=== PATIENT | female | born 1965 | race Caucasian/White ===

== ENCOUNTER → 2016-09-12 | Outpatient (CLI) | payer OTHER ==
--- NOTE | 2016-09-12 10:56 | REPMRS ---
Patient History The patient states she had a clinical breast exam in 05/2016. No known family history of cancer. Took hormonal contraceptives for 7 years. Took unspecified hormones for 1 year. Digital Woman Screen Mammo: September 12, 2016 - Exam #: [id number] Bilateral CC and MLO view(s) were taken. Technologist: Sadie Mckenzie, Technologist Prior study comparison: August 11, 2015, digital bilateral screening mammo, performed at [facility]. June 30, 2014, bilateral bilat screen digital mammo, performed at [facility] ([facility] February 18, 2013, bilateral bilat screen digital mammo, performed at [facility] ([facility] FINDINGS: There are scattered fibroglandular densities. There has been no change in the appearance of the mammogram from the prior studies. There is a mild amount of scattered fibroglandular density which is fairly symmetric. There is no interval development of dominant mass, architectural distortion, or clustered microcalcification suggestive of malignancy. ASSESSMENT: BI-RADS/ACR category 1 mammogram. Negative. Recommendation Routine screening mammogram in 1 year (for women over age 40). This mammogram was interpreted with the aid of an FDA-approved computer-aided dectection system. Electronically Signed By: Edis Thomas MD 09/12/16 [id number]
== END ==
LOC: M WHC 09:11
PROVIDERS: ATTEND Obstetrics & Gynecology
DX: Z12.31 Encounter for screening mammogram for malignant neoplasm of breast (principal)

== ENCOUNTER → 2016-10-11 | Outpatient (REF) | payer OTHER | LOC: M LAB REF 16:45 | PROVIDERS: ATTEND Physician Assistant | DX: N39.0 Urinary tract infection, site not specified (principal); J02.9 Acute pharyngitis, unspecified ==

== ENCOUNTER → 2017-10-23 | Outpatient (CLI) | payer OTHER | LOC: M WHC 08:52 | DX: Z12.31 Encounter for screening mammogram for malignant neoplasm of breast (principal) | CPT/HCPCS: 77067 ==

== ENCOUNTER → 2018-01-30 | Outpatient (CLI) | payer OTHER | LOC: M EKG 11:56 | DX: R00.2 Palpitations (principal) ==

== ENCOUNTER 2018-02-19 06:33 | Day surgery (SDC) | payer OTHER ==
[2018-02-19] MEDS: NS 1,000 ML IV (07:07)
[2018-02-19] MEDS ORDERED: PROPOFOL 200 MG/20 ML VIAL As Ordered (07:57)
[2018-02-19] MEDS ORDERED: fentaNYL 100 MCG/2 ML INJECTION (J3010) As Ordered (07:57)
[2018-02-19] MEDS ORDERED: LIDOCAINE 2% INJ 100 MG/5 ML SDV (FOR ANES.) As Ordered (07:57)
== END 2018-02-19 08:40 | disposition home or self-care (01) ==
LOC: M OPP 06:33
DX: Z12.11 Encounter for screening for malignant neoplasm of colon (principal); D12.4 Benign neoplasm of descending colon; K64.2 Third degree hemorrhoids; K64.1 Second degree hemorrhoids; K57.30 Diverticulosis of large intestine without perforation or abscess without bleeding; K21.0 Gastro-esophageal reflux disease with esophagitis; K29.70 Gastritis, unspecified, without bleeding; K44.9 Diaphragmatic hernia without obstruction or gangrene; R00.2 Palpitations; Z97.8 Presence of other specified devices; K58.9 Irritable bowel syndrome, unspecified; F41.9 Anxiety disorder, unspecified; R51 Headache; J45.909 Unspecified asthma, uncomplicated; Z79.899 Other long term (current) drug therapy
CPT/HCPCS: 45380

== ENCOUNTER → 2019-01-07 | Outpatient (CLI) | payer OTHER ==
[~2019-01-07] MED LIST: ADV100INH INH; CETI10TA PO; FAMO40TA3 PO; MONT10TA2 PO
--- NOTE | 2019-01-07 15:40 | REP ---
BILATERAL SCREENING DIGITAL MAMMOGRAM WITHOUT 3D TOMOSYNTHESIS: There are no palpable abnormalities or other breast complaints. The the patient states she had a clinical breast examination 07/2018. The the patient states she performs self-breast examinations 12 times per year. The Tyrer Cuzick Score is :8.4%. Comparison studies are 06/30/2014 and 10/23/2017. The breasts are heterogeneously dense, which could obscure small masses. There is a new 2.1 cm nodule anteriorly in the left breast laterally as a change from the comparison studies. Impression: BIRADS/ACR category 0 mammogram., incomplete. Additional imaging evaluation is required. Recommendation: The patient has a return for spot compression diagnostic views of the left breast and left breast ultrasound. This mammogram was interpreted with the aid of a FDA approved computer-aided detection system. A. Negative mammogram reports should not delay biopsy if a dominant or clinically suspicious mass is present. B. Not all breast cancers are identified by mammography or tomosynthesis. C. Adenosis and dense breasts may obscure an underlying neoplasm. Patient letter M0 dense breasts. Electronically Signed by Suraj Mancia MD 01/07/2019 03:31 P
== END ==
LOC: M WHC 14:10
PROVIDERS: ATTEND Obstetrics & Gynecology
DX: R92.2 Inconclusive mammogram (principal)

== ENCOUNTER → 2019-01-19 | Outpatient (CLI) | payer OTHER ==
--- NOTE | 2019-01-19 17:22 | REP ---
DIAGNOSTIC MAMMOGRAM LEFT BREAST WITH LEFT BREAST ULTRASOUND: Multiple spot compression views of the left breast performed and confirm the presence of a 2 cm fairly well circumscribed nodule in the outer left breast. Real-time sonographic evaluation of outer left breast demonstrates a cyst at 2-o'clock measuring 1.8 x 1.0 x 1.7 cm. There is an adjacent 4 mm cyst as well. IMPRESSION: ACR 2 benign. Well circumscribed nodule lateral left breast corresponds to a simple cyst by ultrasound. This is benign. Recommend followup mammogram in one year. BIRADS 2: BI-RADS/ACR category 2 mammogram. Benign Findings. This mammogram was interpreted with the aid of an FDA-approved computer-aided detection system. The patient letter being requested is M1 Electronically Signed by Suraj Larsen MD 01/22/2019 10:03 A
== END ==
LOC: M RAD 13:50
PROVIDERS: ATTEND Obstetrics & Gynecology
DX: R92.2 Inconclusive mammogram (principal); N60.02 Solitary cyst of left breast

== ENCOUNTER → 2020-01-27 | Outpatient (CLI) | payer OTHER ==
[~2020-01-27] MED LIST changes: -MONT10TA2 PO; +MONT10TA4 PO
--- NOTE | 2020-01-27 10:38 | REPMRS ---
Patient History No known family history of cancer. Took hormonal contraceptives for 7 years. Took unspecified hormones for 1 year. 3D TOMOSYNTHESIS WAS PERFORMED. [facility] for [facility] cancer is 8.2%. VOLPARA DENSITY B. Digital Woman Screen Mammo: January 27, 2020 - Exam #: [id number] Bilateral CC and MLO view(s) were taken. Technologist: Laura Adames, Technologist Prior study comparison: January 19, 2019, left breast digital mammo diagnostic unilateral, performed at [facility]. January 07, 2019, bilateral digital woman screen mammo performed at [facility]. FINDINGS: The breast tissue is heterogeneously dense. This may lower the sensitivity of mammography. There has been no change in the appearance of the mammogram from the prior studies. There is a moderate amount of residual fibroglandular tissue which is fairly symmetric. There is no interval development of dominant mass, areas of architectural distortion, or clustered microcalcification typical of malignancy. Assessment: BI-RADS/ACR category 1 mammogram. Negative Mammogram. Recommendation Routine screening mammogram in 1 year (for women over age 40). This mammogram was interpreted with the aid of an FDA-approved computer-aided dectection system. Electronically Signed By: Suraj Larsen MD 01/27/20 1037
== END ==
LOC: M WHC 08:23
PROVIDERS: ATTEND Obstetrics & Gynecology
DX: Z12.31 Encounter for screening mammogram for malignant neoplasm of breast (principal); Z92.0 Personal history of contraception

== ENCOUNTER → 2020-02-17 | Outpatient (CLI) | payer OTHER ==
--- NOTE | 2020-04-10 09:03 | REP ---
HEPATOBILIARY SCAN WITH GALLBLADDER EJECTION FRACTION: HISTORY: Intermittent right upper quadrant abdominal pain, prior ultrasound showing no gallstones. Evaluate for biliary dyskinesia. TECHNIQUE: 6.6 mCi of Technetium-99m mebrofenin is injected and sequential images of the right upper quadrant are acquired for an interval of 60 minutes. At the 60 minute post injection, 8 ounces of Ensure was ingested by the patient and an additional 60 minutes of imaging was acquired with regions of interest drawn around the gallbladder. FINDINGS: The initial hepatocellular parenchymal uptake phase is normal and homogeneous. Intra and extrahepatic biliary tract labeling is observed at 10 minutes. The gallbladder is first labeled at 15 minutes along with the duodenum and small intestine. Subsequent images demonstrate expected washout from the liver parenchyma. The gallbladder ejection fraction is normal at 48%. IMPRESSION: Normal hepatobiliary scan and gallbladder ejection fraction. MTDD
== END ==
LOC: M RAD 09:00
PROVIDERS: ATTEND Internal Medicine Gastroenterology
DX: R10.11 Right upper quadrant pain (principal)

== ENCOUNTER → 2020-06-21 | Outpatient (CLI) | payer SELFPAY ==
[~2020-06-21] MED LIST changes: -MONT10TA4 PO; +MONT5TAB2 PO
== END ==
LOC: M LABSMTC 12:00
PROVIDERS: ATTEND Pediatrics
DX: Z11.59 Encounter for screening for other viral diseases (principal)

== ENCOUNTER → 2021-04-05 | Outpatient (CLI) | payer OTHER ==
[~2021-04-05] MED LIST changes: +MONT10TA10 PO; -MONT5TAB2 PO
--- NOTE | 2021-04-05 11:45 | REPMRS ---
Patient History The patient states she had a clinical breast exam in July 2020. No known family history of cancer. Took hormonal contraceptives for 7 years. Took unspecified hormones for 1 year. Patient states no breast complaints today. Patient has signed MRS History Sheet. Digital Woman Screen Mammo: April 05, 2021 - Exam #: [id number] Bilateral CC and MLO view(s) were taken. Technologist: Connie Ruiz, Technologist Prior study comparison: January 27, 2020, bilateral digital woman screen mammo performed at [facility]. January 19, 2019, left breast digital mammo diagnostic unilateral, performed at [facility]. FINDINGS: There are scattered fibroglandular densities. Screening. Digital screening (2D) mammography was performed bilaterally in the CC and MLO projections. Additionally, breast tomosynthesis (3D mammography) was performed bilaterally in the CC and MLO projections. Todays exam was compared to the prior exam/exams. By history, the patient has no complaints of a palpable breast abnormality or other significant breast complaints. The Volpara volumetric breast density category is B, there are scattered areas of fibroglandular densities. The breasts are unchanged in size and shape. There are no genna-soft tissue densities or spiculated masses. There is no internal architectural distortion. There are no suspicious genna-calcific clusters. Skin thickening or nipple retraction is not present. IMPRESSION: BI-RADS Category 2- Benign Findings. There is no evidence of malignant alteration of the breasts. Followup examination recommended in one year. This mammogram was read with the assistance of [employer],an FDA approved computer aided detection system for mammography. The lifetime Tyrer-Cuzick score is 8.0% Negative x-ray reports should not delay surgical consultation if a dominant or clinically suspicious mass is present. Not all breast cancers can be identified by mammography. Therefore, we recommend that you continue to perform regular breast self-examination and physical examination and then promptly contact your physician of any concerns or changes. Adenosis and dense breasts may obscure an underlying neoplasm. No significant changes when compared with prior studies. Assessment: BI-RADS/ACR category 2 mammogram. Benign Findings. Recommendation Routine screening mammogram of both breasts in 1 year. Electronically Signed By: Antoine Adhikari MD 04/05/21 1365
== END ==
LOC: M WHC 10:24
PROVIDERS: ATTEND Obstetrics & Gynecology
DX: Z12.31 Encounter for screening mammogram for malignant neoplasm of breast (principal)

== ENCOUNTER → 2022-04-08 | Outpatient (CLI) | payer OTHER ==
[~2022-04-08] MED LIST changes: -MONT10TA10 PO; +MONT10TA97 PO
== END ==
LOC: M WHC 10:00
PROVIDERS: ATTEND Obstetrics & Gynecology
DX: Z12.31 Encounter for screening mammogram for malignant neoplasm of breast (principal)

== ENCOUNTER → 2022-09-16 | Outpatient (CLI) | payer OTHER | LOC: M WHC 11:01 | PROVIDERS: ATTEND Obstetrics & Gynecology | DX: Z13.820 Encounter for screening for osteoporosis (principal) ==

== ENCOUNTER → 2023-01-10 | Outpatient (CLI) | payer OTHER | LOC: M PLAIMG 10:38 | PROVIDERS: ATTEND Physician Assistant | DX: J32.8 Other chronic sinusitis (principal) ==

== ENCOUNTER → 2023-05-05 | Outpatient (CLI) | payer OTHER | LOC: M WHC 15:41 | PROVIDERS: ATTEND Obstetrics & Gynecology | DX: Z12.31 Encounter for screening mammogram for malignant neoplasm of breast (principal) ==

== ENCOUNTER → 2023-07-25 | Outpatient (REF) | payer OTHER ==
[2023-07-25 13:10] LABS: APPEARANCE, URINE CLOUDY (CLEAR); BACTERIA, URINE AUTO 2+ (NEGATIVE); BILIRUBIN, URINE AUTO NEGATIVE (NEGATIVE); BLOOD, URINE BLOOD NEGATIVE (NEGATIVE); COLOR, URINE AMBER (YELLOW); GLUCOSE, URINE (UA) AUTO NEGATIVE (NEGATIVE); KETONE, URINE AUTO NEGATIVE (NEGATIVE); LEUKOCYTE ESTERASE, URINE AUTO 3+ (NEGATIVE); MUCUS, URINE SMALL (NEGATIVE); NITRITE, URINE AUTO NEGATIVE (NEGATIVE); PROTEIN, URINE AUTO 1+ mg/dL (NEGATIVE); RBC, URINE AUTO 5 /HPF (0-3); SPECIFIC GRAVITY URINE AUTO 1.017 (1.002-1.035); SQUAMOUS EPITHELIAL CELL UR AU 1 /HPF (0-6); UROBILINOGEN, URINE AUTO 0.2 mg/dL (0.0-2.0); WBC, URINE AUTO TNTC /HPF (0-3)
== END ==
LOC: M LAB REF 12:21
PROVIDERS: ATTEND Physician Assistant Medical
DX: N39.0 Urinary tract infection, site not specified (principal)

== ENCOUNTER → 2024-05-07 | Outpatient (CLI) | payer OTHER | LOC: M WHC 09:05 | PROVIDERS: ATTEND Obstetrics & Gynecology | DX: Z12.31 Encounter for screening mammogram for malignant neoplasm of breast (principal) ==

== ENCOUNTER 2024-06-03 08:11 | Day surgery (SDC) | payer OTHER ==
[~2024-06-03] VITALS: Ht 175.3 cm; Wt 87.8 kg
[~2024-06-03 08:11] MED LIST changes: +CELE1CAP4 PO; +LEVOTAB10 PO; +NORV5TAB PO; +OXYB5TAB14 PO; +ZOLO50TA PO
[2024-06-03] MEDS ORDERED: ESOM1CAP20 PO (08:24)
[2024-06-03] MEDS ORDERED: dexmedeTOMIDine (4MCG/ML)200MCG/50ML BTL (PRECEDEX) As Ordered ONE (08:45)
[2024-06-03] MEDS ORDERED: LIDOCAINE 2% 100MG/5ML SDV (FOR ANES.) As Ordered ONE (08:45)
[2024-06-03] MEDS ORDERED: propofoL 200 MG/20 ML VIAL As Ordered ONE (08:45)
[2024-06-03] MEDS ORDERED: fentaNYL 100 MCG/2 ML INJECTION As Ordered ONE (09:58)
[2024-06-03 10:26] VITALS: BP 118/66; TEMP 97.2
[2024-06-03 10:58] VITALS: O2SAT 98
== END 2024-06-03 11:03 | disposition home or self-care (01) ==
LOC: M OPP 08:11
PROVIDERS: ATTEND Surgery
DX: Z12.11 Encounter for screening for malignant neoplasm of colon (principal); K57.30 Diverticulosis of large intestine without perforation or abscess without bleeding; K31.7 Polyp of stomach and duodenum; K44.9 Diaphragmatic hernia without obstruction or gangrene; K31.89 Other diseases of stomach and duodenum; I10 Essential (primary) hypertension; K58.9 Irritable bowel syndrome, unspecified; R12 Heartburn; F41.9 Anxiety disorder, unspecified; J45.909 Unspecified asthma, uncomplicated; Z79.51 Long term (current) use of inhaled steroids; Z79.899 Other long term (current) drug therapy
CPT/HCPCS: 43239; 45378; 88305; J3010

== ENCOUNTER → 2025-07-04 | Outpatient (CLI) | payer OTHER ==
[~2025-07-04] MED LIST changes: -ADV100INH INH; +ADVA1AER8 INH; +ESOM1CAP20 PO
== END ==
LOC: M WHC 11:07
PROVIDERS: ATTEND Obstetrics & Gynecology
DX: Z12.31 Encounter for screening mammogram for malignant neoplasm of breast (principal); Z13.820 Encounter for screening for osteoporosis; M81.0 Age-related osteoporosis without current pathological fracture